=== PATIENT | female | born 1975 | race African-American/Black ===

== ENCOUNTER 2020-10-02 10:15 | Inpatient (IN) | payer MEDICARE, MEDICAID ==
[2020-10-04 09:50] VITALS: BMI 39.6
[2020-10-05] MEDS ORDERED: Heparin 5,000 UNITS/ML VIAL ONE (09:40)
[2020-10-05] MEDS ORDERED: Bupivacaine 0.25% HCL 30 ML VIAL ONE ×2 (10:27→11:36)
[2020-10-05] MEDS ORDERED: EPINEPHrine 1 MG/ML AMP ONE (10:27)
[2020-10-05] MEDS ORDERED: Fentanyl 100 MCG/2 ML VIAL ONE ×3 (10:38→13:20)
[2020-10-05] MEDS ORDERED: Midazolam HCl 2 mg/2 ml Vial ONE (10:38)
[2020-10-05] MEDS ORDERED: Dexamethasone 20 MG/5 ML VIAL ONE (11:09)
[2020-10-05] MEDS ORDERED: PROPOFOL 200 MG/20 ML VIAL ONE (11:09)
[2020-10-05] MEDS ORDERED: Glycopyrrolate 0.2 MG/ML 5 ML SYRINGE ONE (11:09)
[2020-10-05] MEDS ORDERED: Ondansetron PF 4 MG/2 ML Vial ONE (11:09)
[2020-10-05] MEDS ORDERED: Rocuronium Bromide 10 MG/ML (10ML VIAL) ONE (11:09)
[2020-10-05] MEDS ORDERED: Hydrocodone-Acetamin 15 ML UDCUP PO PRN (12:25)
[2020-10-05] MEDS ORDERED: hydrALAZINE 20 MG/ML VIAL SLOW IVP PRN (12:25)
[2020-10-05] MEDS ORDERED: Ondansetron PF 4 MG/2 ML Vial IVP PRN (12:25)
[2020-10-05] MEDS ORDERED: Dextrose 50% Abboject 50 ML SYRINGE SLOW IVP PRN (12:25)
[2020-10-05] MEDS ORDERED: diphenhydrAMINE 50 MG/ML VIAL IVP PRN ×2 (12:25→13:00)
[2020-10-05] MEDS ORDERED: Promethazine HCl 25 MG/ML VIAL IM PRN (12:25)
[2020-10-05] MEDS ORDERED: Dextrose 5% in Water 1,000 ML IV PRN (12:25)
[2020-10-05] MEDS ORDERED: Communication Order-Pharmacy FS PRN (13:00)
[2020-10-05] MEDS ORDERED: HYDROmorphone 10 mg/100 ml CADD IVPB PRN (13:00)
[2020-10-05] MEDS ORDERED: diphenhydrAMINE 25 MG CAP PO PRN (13:00)
[2020-10-05] MEDS ORDERED: diphenhydrAMINE 50 MG/ML VIAL IM PRN (13:00)
[2020-10-05] MEDS ORDERED: Zolpidem Tartrate 5 MG TAB PO PRN (13:00)
[2020-10-05] MEDS ORDERED: Naloxone HCl 0.4 mg/ml Vial IV PRN (13:00)
[2020-10-05] MEDS ORDERED: Promethazine HCl 25 MG/ML VIAL ONE (13:04)
[2020-10-05] MEDS: D5 1/2 NS w/20 mEq KCL 1,000 ML IV SCH ×2 (15:49→23:13)
[2020-10-05] MEDS: CEFAZOLIN 2 GM in Premix Bag 1 BAG IVPB SCH (17:29)
[2020-10-05] MEDS: Ondansetron PF 4 MG/2 ML Vial IVP PRN ×2 (17:29→23:47)
[2020-10-05] MEDS: Ketorolac Tromethamine 30 MG/ML VIAL IVP SCH ×2 (17:30→23:13)
[2020-10-05] MEDS: Promethazine HCl 25 MG/ML VIAL IM PRN (20:43)
[2020-10-06] MEDS: CEFAZOLIN 2 GM in Premix Bag 1 BAG IVPB SCH (02:02)
[2020-10-06] MEDS: Promethazine HCl 25 MG/ML VIAL IM PRN (04:14)
[2020-10-06] MEDS: Ketorolac Tromethamine 30 MG/ML VIAL IVP SCH ×2 (05:14→11:42)
[2020-10-06] MEDS: D5 1/2 NS w/20 mEq KCL 1,000 ML IV SCH ×2 (05:17→11:42)
[2020-10-06 05:28] LABS: #Lymphocytes 1.7 thou/uL (1.20-3.40); #Monocytes 0.7 thou/uL (0.11-0.59); #Neutrophils 9.7 thou/uL (1.40-6.50); %Basophils 0.1 % (0.0-1.0); %Eosinophils 0.1 % (0.0-10.0); %Monocytes 5.5 % (0.0-10.0); %Neutrophils 80.3 % (42.0-75.0); Hemoglobin 13.9 g/dL (12.0-16.0); Mean Corpuscular HGB CONC 32.7 g/dL (32.0-36.0); Mean Corpuscular Hemoglobin 32.3 pg (27.0-31.0); Mean Corpuscular Volume 98.8 fL (78.0-98.0); Mean Platelet Volume 7.1 fL (7.4-10.4); Platelet Count 231 thou/uL (130-400); RBC Distribution Width 12.5 % (11.5-14.5); Red Blood Cell (RBC) Count 4.29 mill/uL (4.20-5.40); White Blood Cell (WBC) Count 12.1 thou/uL (4.8-10.8)
[2020-10-06 05:45] LABS: Anion Gap 14 mmol/L (10-20); BUN (Urea Nitrogen) 7 mg/dL (7.0-18.7); Calc. Creatinine Clearance 140 mL/min (70-130); Calcium 9.5 mg/dL (7.8-10.44); Carbon Dioxide 25 mmol/L (22-29); Chloride 104 mmol/L (98-107); Glucose 135 mg/dL (70-105); Potassium 3.9 mmol/L (3.5-5.1); Sodium 139 mmol/L (136-145)
[2020-10-06] MEDS ORDERED: Pantoprazole 40 MG VIAL IVP SCH (09:00)
[2020-10-06] MEDS ORDERED: Enoxaparin Sodium 40 MG/0.4 ML SYRINGE SC SCH (09:00)
[2020-10-06 12:14] VITALS: BP 116/79; TEMP 97.9
== END 2020-10-06 12:30 | disposition home or self-care (01) | DRG 621 ==
LOC: SURG A 10-05 08:56
PROVIDERS: ADMIT Surgery; ATTEND Surgery
PROC: 0DB64Z3 Excision of Stomach, Percutaneous Endoscopic Approach, Vertical (ICD-10-PCS; principal; 2020-10-05)
PROC: 0DJ08ZZ Inspection of Upper Intestinal Tract, Via Natural or Artificial Opening Endoscopic (ICD-10-PCS; 2020-10-05)
DX: E66.01 Morbid (severe) obesity due to excess calories (principal); F17.210 Nicotine dependence, cigarettes, uncomplicated; G40.309 Generalized idiopathic epilepsy and epileptic syndromes, not intractable, without status epilepticus; G43.909 Migraine, unspecified, not intractable, without status migrainosus; M47.896 Other spondylosis, lumbar region; F32.9 Major depressive disorder, single episode, unspecified; Z68.39 Body mass index [BMI] 39.0-39.9, adult; Z88.8 Allergy status to other drugs, medicaments and biological substances; Z79.899 Other long term (current) drug therapy; Z90.710 Acquired absence of both cervix and uterus; Z90.49 Acquired absence of other specified parts of digestive tract
CPT/HCPCS: 36415; 80048; 85025; 88307; 94760; C9113; J0171; J0690; J1100; J1644; J1650; J1885; J2250; J2405; J2550; J2704; J3010; J3480; S0020

== ENCOUNTER 2020-10-10 09:48 | Day surgery (SDC) | payer MEDICARE, MEDICAID ==
[2020-10-10] MEDS ORDERED: Ondansetron PF 4 MG/2 ML Vial IVP PRN (10:03)
[2020-10-10] MEDS ORDERED: Sodium Chloride 0.9% 1,000 ML IV SCH (10:15)
[2020-10-10] MEDS ORDERED: Sodium Chloride 0.9% 20 ML ONE (10:23)
[2020-10-10 10:30] VITALS: BP 98/64; TEMP 98.7
[2020-10-10] MEDS ORDERED: Multivitamins, Adult 10 ML, Thiamine HCl 100 MG in Sodium Chloride 0.9% 1,000 ML IV SCH (11:00)
== END 2020-10-10 13:09 | disposition home or self-care (01) ==
LOC: ONC/OP 09:48
PROVIDERS: ATTEND Surgery
DX: E86.0 Dehydration (principal); Z88.8 Allergy status to other drugs, medicaments and biological substances
CPT/HCPCS: 96361; 96365; 96366; J3411; J7050

== ENCOUNTER 2020-10-11 16:00 | Emergency (ER) | payer MEDICARE, MEDICAID ==
[2020-10-11 18:12] LABS: #Eosinphils 0.2 thou/uL (0.0-0.7); #Lymphocytes 3.1 thou/uL (1.20-3.40); #Monocytes 0.6 thou/uL (0.11-0.59); #Neutrophils 3.4 thou/uL (1.40-6.50); %Basophils 0.3 % (0.0-1.0); %Lymphocytes 42.2 % (21.0-51.0); %Monocytes 8.5 % (0.0-10.0); %Neutrophils 46.1 % (42.0-75.0); Hemoglobin 13.5 g/dL (12.0-16.0); Mean Corpuscular HGB CONC 33.8 g/dL (32.0-36.0); Mean Corpuscular Hemoglobin 33.3 pg (27.0-31.0); Mean Corpuscular Volume 98.5 fL (78.0-98.0); Mean Platelet Volume 6.7 fL (7.4-10.4); Platelet Count 243 thou/uL (130-400); RBC Distribution Width 12.7 % (11.5-14.5); Red Blood Cell (RBC) Count 4.05 mill/uL (4.20-5.40); White Blood Cell (WBC) Count 7.3 thou/uL (4.8-10.8)
[2020-10-11 18:30] LABS: ALT (SGPT) 18 U/L (8-55); AST (SGOT) 22 U/L (5-34); Albumin 4.2 g/dL (3.5-5.0); Alkaline Phosphatase 98 U/L (40-110); Anion Gap 15 mmol/L (10-20); BUN (Urea Nitrogen) 10 mg/dL (7.0-18.7); Bilirubin, Total 0.4 mg/dL (0.2-1.2); Calc. Creatinine Clearance 0 mL/min (70-130); Calcium 9.4 mg/dL (7.8-10.44); Carbon Dioxide 24 mmol/L (22-29); Chloride 102 mmol/L (98-107); Globulin 3.6 g/dL (2.4-3.5); Glucose 88 mg/dL (70-105); Lipase 31 U/L (8-78); Potassium 3.4 mmol/L (3.5-5.1); Protein, Total 7.8 g/dL (6.0-8.3); Sodium 138 mmol/L (136-145)
== END 2020-10-11 20:57 | disposition left against medical advice (07) ==
LOC: ERS 16:00
DX: Z53.21 Procedure and treatment not carried out due to patient leaving prior to being seen by health care provider (principal)
CPT/HCPCS: 36415; 80053; 83605; 83690; 85025

== ENCOUNTER 2020-10-23 17:22 | Outpatient (CLI) | payer MEDICARE, MEDICAID ==
[2020-10-02 11:22] LABS: #Eosinphils 0.1 10x3/uL (0.0-0.5); #Monocytes 0.7 10x3/uL (0.0-1.1); #Neutrophils 3.6 10x3/uL (1.5-8.4); %Basophils 0.3 % (0.0-2.0); %Eosinophils 1.5 % (0.0-6.0); %Monocytes 11.3 % (0.0-10.0); %Neutrophils 54.7 % (40.0-75.0); Hemoglobin 13.4 g/dL (12.0-15.5); Mean Corpuscular HGB CONC 32.7 g/dL (32.0-36.0); Mean Corpuscular Hemoglobin 31.9 pg (27.0-33.0); Mean Corpuscular Volume 97.6 fl (81.6-98.3); Mean Platelet Volume 9.8 fl (7.4-10.4); Platelet Count 232 10x3/uL (150-450); White Blood Cell (WBC) Count 6.6 10x3/uL (3.5-10.5)
[2020-10-02 11:44] LABS: ALT (SGPT) 27 U/L (8-55); AST (SGOT) 23 U/L (5-34); Albumin 4.4 g/dL (3.5-5.0); Alkaline Phosphatase 116 U/L (40-110); Anion Gap 16 mmol/L (10-20); BUN (Urea Nitrogen) 14 mg/dL (7.0-18.7); Bilirubin, Total 0.3 mg/dL (0.2-1.2); Calc. Creatinine Clearance 0 mL/min (70-130); Calcium 9.9 mg/dL (7.8-10.44); Carbon Dioxide 27 mmol/L (22-29); Chloride 104 mmol/L (98-107); Globulin 3.1 g/dL (2.4-3.5); Glucose 88 mg/dL (70-105); Potassium 4.6 mmol/L (3.5-5.1); Protein, Total 7.5 g/dL (6.0-8.3); Sodium 142 mmol/L (136-145)
[2020-10-02 15:05] LABS: Hemoglobin A1c 5.4 % (4.0-6.0)
[2020-10-02 23:36] LABS: SARS-CoV-2 PCR by NAA Not Detected (NotDetected)
[2020-10-23 18:21] LABS: #Eosinphils 0.2 10x3/uL (0.0-0.5); #Monocytes 0.4 10x3/uL (0.0-1.1); #Neutrophils 2.9 10x3/uL (1.5-8.4); %Basophils 0.5 % (0.0-2.0); %Eosinophils 2.8 % (0.0-6.0); %Lymphocytes 45.1 % (18.0-47.0); %Monocytes 6.6 % (0.0-10.0); %Neutrophils 44.8 % (40.0-75.0); Hemoglobin 13.6 g/dL (12.0-15.5); Mean Corpuscular HGB CONC 32.2 g/dL (32.0-36.0); Mean Corpuscular Volume 99.3 fl (81.6-98.3); Mean Platelet Volume 9.7 fl (7.4-10.4); Platelet Count 242 10x3/uL (150-450); RBC Distribution Width 14.1 % (11.5-14.5); Red Blood Cell (RBC) Count 4.25 10x6/uL (3.90-5.03); White Blood Cell (WBC) Count 6.4 10x3/uL (3.5-10.5)
[2020-10-23 18:23] LABS: Anion Gap 15 mmol/L (10-20); BUN (Urea Nitrogen) 12 mg/dL (7.0-18.7); Calc. Creatinine Clearance 0 mL/min (70-130); Carbon Dioxide 29 mmol/L (22-29); Chloride 104 mmol/L (98-107); Glucose 108 mg/dL (70-105); Potassium 3.6 mmol/L (3.5-5.1); Sodium 144 mmol/L (136-145)
[2020-10-23 19:05] LABS: SARS-CoV-2 NAA Rapid Test Not Detected (NotDetected)
== END 2020-10-23 17:23 | disposition home or self-care (01) ==
LOC: LABBT 17:22
PROVIDERS: ATTEND Surgery
DX: Z01.818 Encounter for other preprocedural examination (principal); R13.10 Dysphagia, unspecified; Z20.822 Contact with and (suspected) exposure to COVID-19
CPT/HCPCS: 71046; 80053; 83036; 85025; 93005; U0003; U0005; 80048; 84425; 93010; U0002

== ENCOUNTER 2020-10-24 09:55 | Day surgery (SDC) | payer MEDICARE, MEDICAID ==
[2020-10-24] MEDS ORDERED: [UNRECOGNIZED DRUG - OTHER] IV SCH (11:45)
[2020-10-24] MEDS ORDERED: MULTIVITAMINS IV SCH (11:45)
[2020-10-24] MEDS ORDERED: THIAMINE HCL IV SCH (11:45)
[2020-10-24] MEDS ORDERED: FOLIC ACID IV SCH (11:45)
[2020-10-24] MEDS ORDERED: PROPOFOL 200 MG/20 ML VIAL ONE (13:22)
[2020-10-24] MEDS ORDERED: Lidocaine 1% PF 5 ML VIAL ONE (13:22)
== END 2020-10-24 14:50 | disposition home or self-care (01) ==
LOC: SDC 09:55
PROVIDERS: ATTEND Surgery
PROC: 0DJ08ZZ Inspection of Upper Intestinal Tract, Via Natural or Artificial Opening Endoscopic (ICD-10-PCS; principal; 2020-10-24)
DX: K22.10 Ulcer of esophagus without bleeding (principal); R13.10 Dysphagia, unspecified; F17.210 Nicotine dependence, cigarettes, uncomplicated; G43.909 Migraine, unspecified, not intractable, without status migrainosus; Z79.899 Other long term (current) drug therapy; Z88.8 Allergy status to other drugs, medicaments and biological substances; Z98.84 Bariatric surgery status
CPT/HCPCS: J2704; J3411; J7050